=== PATIENT | male | born 1960 | race Caucasian/White ===

== ENCOUNTER 2020-01-16 09:10 | Emergency (ER) | payer MEDICAID ==
[~2020-01-16] VITALS: Ht 175.3 cm; Wt 87.1 kg
[2020-01-16 09:14] VITALS: BP 147/87
--- NOTE | 2020-01-16 09:15 | NUR ---
Patient ambulated to bed 7. RN evaluating patient at bedside.
--- NOTE | 2020-01-16 09:20 | NUR ---
59 y/o A&OX4 male c/o abdominal pain to LLQ sharp/burn constant with no relief [id number] worsened last night. Pt states he has been nauseaus and vomited X2 at home, has vomited one time at bedside. Pt denies fever, chills. Abdomen is soft, round, tender to palpation at LLQ. Bowel sounds active X4, last BM 01/14/20. Denies PMH, RX, NKA.
[2020-01-16] MEDS ORDERED: ONDANSETRON 4 MG ODT PO ONE (09:35)
--- NOTE | 2020-01-16 09:36 | NUR ---
Dr. Giles at the pt bedside for evaluation.
[2020-01-16] MEDS ORDERED: KETOROLAC 30 MG/ML VIAL IVP ONE (09:40)
[2020-01-16 10:00] LABS: BASOPHILS # (AUTO) 0.1 K/uL (0.00-0.22); BASOPHILS % (AUTO) 0.6 % (0.0-2.0); EOSINOPHILS # (AUTO) 0.1 K/uL (0-0.4); EOSINOPHILS % (AUTO) 0.7 % (0.0-4.0); HEMATOCRIT 42.3 % (36-52); HEMOGLOBIN 14.4 g/dL (12.0-18.0); LYMPHOCYTES # (AUTO) 1.7 K/uL (2.0-11.5); LYMPHOCYTES % (AUTO) 19.1 % (20.5-51.1); MEAN CORPUSCULAR HEMOGLOBIN 29 pg (27-31); MEAN CORPUSCULAR HGB CONC 34 g/dL (33-37); MEAN CORPUSCULAR VOLUME 86.3 fL (80-94); MONOCYTES # (AUTO) 0.5 K/uL (0.8-1.0); MONOCYTES % (AUTO) 6.2 % (1.7-9.3); NEUTROPHILS # (AUTO) 6.6 K/uL (1.8-7.7); NEUTROPHILS % (AUTO) 73.4 % (42.2-75.2); PLATELET COUNT (AUTO) 197 K/uL (140-450); RED CELL DISTRIBUTION WIDTH 13.2 % (11.6-13.7); WHITE BLOOD COUNT (AUTO) 8.9 K/uL (4.8-10.8)
--- NOTE | 2020-01-16 10:04 | NUR ---
Pt taken to CT scan as ordered per ERMD.
--- NOTE | 2020-01-16 10:08 | NUR ---
Simon returned from CT scan. RN reevaluating the patient at bedside.
[2020-01-16 10:13] LABS: ALBUMIN 4.4 g/dL (3.4-5.0); ANION GAP 14.8 (8-16); CARBON DIOXIDE 28.3 mmol/L (21-32); CREATININE 1.6 mg/dL (0.6-1.3); POTASSIUM 4.1 mmol/L (3.5-5.1); TOTAL BILIRUBIN 0.6 mg/dL (0.0-1.0)
[2020-01-16] MEDS ORDERED: NACL 0.9% 1,000 ML IV ONE (10:35)
[2020-01-16] MEDS ORDERED: MORPHINE SULFATE 4 MG/ML SYR IVP ONE (10:55)
--- NOTE | 2020-01-16 11:48 | NUR ---
IV discontinued, 2x2 gauze placed to IV site.
[2020-01-16 11:49] VITALS: BP 134/79
--- NOTE | 2020-01-16 11:49 | NUR ---
Patient discharged with v/s stable. Written and verbal after care instructions given and explained. Patient alert, oriented and verbalized understanding of instructions. Ambulatory with steady gait. All questions addressed prior to discharge. ID band removed. Patient advised to follow up with PMD. Rx of Motrin 800mg, [place] 5mg-325mg, Flomax 0.4mg, and Zofran 8mg given. Patient educated on indication of medication including possible reaction and side effects. Opportunity to ask questions provided and answered.
== END 2020-01-16 11:49 | disposition home or self-care (01) ==
LOC: MED 09:10
DX: N20.0 Calculus of kidney (principal); R11.2 Nausea with vomiting, unspecified
CPT/HCPCS: 36415; 74176; 80053; 81002; 83690; 85025; 96361; 96374; 96375; 99284; J1885; J2270; J7030; Q0162

== ENCOUNTER 2020-04-29 10:02 | Emergency (ER) | payer MEDICAID ==
[~2020-04-29] VITALS: Ht 177.8 cm; Wt 81.6 kg
[2020-04-29 10:08] VITALS: BP 126/70
--- NOTE | 2020-04-29 10:10 | NUR ---
Pt presents to ER c/o dry cough x2 weeks, body aches, chest pain, headache and throat pain that is worse at night. Per pt headache pain level 04/18. Currently denies CP, N/V/D and shortness of breath. Pt was tested for COVID, with + results 04/18/20. Pt awake and alert. No signs of acute distress. VSS on cardiac tele monitor. Allergies: NKA Med hx: kidney stones
--- NOTE | 2020-04-29 10:25 | NUR ---
MD Valverde evaluating pt at bedside
--- NOTE | 2020-04-29 10:30 | NUR ---
Phleb at bedside
[2020-04-29] MEDS ORDERED: DEXAMETHASONE 10 MG/ML VIAL IVP ONE (10:35)
--- NOTE | 2020-04-29 10:35 | NUR ---
RT at bedside
[2020-04-29 10:55] LABS: BASOPHILS # (AUTO) 0.2 K/uL (0.00-0.22); BASOPHILS % (AUTO) 3.3 % (0.0-2.0); EOSINOPHILS # (AUTO) 0.1 K/uL (0-0.4); EOSINOPHILS % (AUTO) 1.9 % (0.0-4.0); HEMATOCRIT 38.5 % (36-52); HEMOGLOBIN 13.3 g/dL (12.0-18.0); LYMPHOCYTES # (AUTO) 1.8 K/uL (2.0-11.5); LYMPHOCYTES % (AUTO) 37.7 % (20.5-51.1); MEAN CORPUSCULAR HEMOGLOBIN 30 pg (27-31); MEAN CORPUSCULAR HGB CONC 35 g/dL (33-37); MEAN CORPUSCULAR VOLUME 85.4 fL (80-94); MONOCYTES # (AUTO) 0.3 K/uL (0.8-1.0); MONOCYTES % (AUTO) 6.4 % (1.7-9.3); NEUTROPHILS # (AUTO) 2.4 K/uL (1.8-7.7); NEUTROPHILS % (AUTO) 50.7 % (42.2-75.2); PLATELET COUNT (AUTO) 217 K/uL (140-450); RED BLOOD CELL COUNT(AUTO) 4.51 MIL/uL (4.20-6.10); RED CELL DISTRIBUTION WIDTH 12.7 % (11.6-13.7); WHITE BLOOD COUNT (AUTO) 4.8 K/uL (4.8-10.8)
--- NOTE | 2020-04-29 10:55 | NUR ---
Xray at bedside
[2020-04-29 11:09] LABS: C-REACTIVE PROTEIN QUANT 0.6 mg/dL (0.0-0.9)
--- NOTE | 2020-04-29 11:12 | NUR ---
okay to give pt water. Pt unable to provide urine at this time.
[2020-04-29 11:14] LABS: PROTHROMBIN TIME 9.9 secs (10.8-13.4)
[2020-04-29 11:17] LABS: ALBUMIN 3.8 g/dL (3.4-5.0); ANION GAP 9.9 (8-16); POTASSIUM 3.9 mmol/L (3.5-5.1); TOTAL BILIRUBIN 0.4 mg/dL (0.0-1.0)
[2020-04-29 11:37] LABS: RSV NEGATIVE (NEGATIVE)
--- NOTE | 2020-04-29 11:37 | NUR ---
RECEIVED CRITICAL LAB RESULT. NEGATIVE FOR INFLUENZA A AND + FOR INFLUENZA B. DR. PAULSON MADE AWARE.
[2020-04-29 11:42] LABS: D-DIMER < 100 ng/ml (0-400)
[2020-04-29 11:43] LABS: FIBRINOGEN 359 mg/dL (200-400)
[2020-04-29 11:55] LABS: APPEARANCE,URINE CLEAR (CLEAR); BILIRUBIN,URINE NEGATIVE (NEGATIVE); BLOOD, URINE NEGATIVE (NEGATIVE); COLOR,URINE YELLOW (YELLOW); LEUKOCYTE ESTERASE ,URINE NEGATIVE (NEGATIVE); NITRITE, URINE NEGATIVE (NEGATIVE); UGLUCOSE NEGATIVE (NEGATIVE)
[2020-04-29 12:04] LABS: RBC,URINE 0-5 /HPF (0-5); WBC,URINE 0-5 /HPF (0-5)
[2020-04-29 12:11] VITALS: BP 126/78
--- NOTE | 2020-04-29 12:11 | NUR ---
Patient discharged with v/s stable. Written and verbal after care instructions given and explained. Patient alert, oriented and verbalized understanding of instructions. Ambulatory with steady gait. All questions addressed prior to discharge. ID band removed. Patient advised to follow up with PMD. Rx of CODEINE PHOSPHATE 10MG-6.25MG/5ML SYRUP Q6H PO, TAMIFLU 75MG CAP BID PRN X5DAYS, AND MOTRIN 800MG TID PO given. Patient educated on indication of medication including possible reaction and side effects. Opportunity to ask questions provided and answered.
--- NOTE | 2020-05-01 11:13 | NUR ---
LATE ENTRY----LAB CALLED WITH RESULTS. COVID + RESULT.
== END 2020-04-29 12:11 | disposition home or self-care (01) ==
LOC: MED 10:02
DX: U07.1 COVID-19 (principal); Z87.442 Personal history of urinary calculi
CPT/HCPCS: 36415; 71045; 80053; 81001; 83605; 83615; 83880; 84484; 85025; 85379; 85384; 85610; 85730; 86140; 87040; 87086; 87420; 87804; 93005; 96374; 99285; J1100; U0003